=== PATIENT | male | born 1990 | race African-American/Black ===

== ENCOUNTER 2022-04-11 15:04 | Emergency (ER) | payer MEDICAID, SELFPAY ==
[2022-04-11 16:11] VITALS: BP 124/78; PULSE 94; RESP 16; TEMP 36.7; O2SAT 99; BMI 34.2
[2022-04-11 16:35] VITALS: BP 124/78; PULSE 94; RESP 16; TEMP 36.7; O2SAT 99; BMI 34.3
--- NOTE | 2022-04-11 16:59 | US_ITS ---
PROCEDURE INFORMATION: Exam: US Scrotum and US Duplex Artery and Vein, Scrotum, Complete Exam date and time: 04/11/2022 5:12 PM Age: 31 years old Clinical indication: Scrotum pain; Additional info: Pain/swelling x 1 week TECHNIQUE: Imaging protocol: Real-time ultrasound of the scrotum. Real-time duplex ultrasound scan of the arterial and venous flow of the scrotum with B-mode, color Doppler flow and spectral waveform analysis. Complete exam. Duplex images required to evaluate vascular conditions. COMPARISON: No relevant prior studies available. FINDINGS: Right testicle: Right testicle measures 2.2 x 4.0 x 2.6 cm. Calcifications noted within the right testicle. Left testicle: Left testicle measures 2.1 x 3.3 x 2.4 cm. Loculated fluid collection noted superior to the left testicle. 2.3 x 2.0 x 1.5 cm heterogeneous mass noted superior to the left testicle. Epididymides: There is enlargement of the right epididymis with increased vascularity consistent with epididymitis. This may be related to the epididymis, however a neoplasm cannot be excluded. Short-term follow-up is recommended. Scrotum: Small left hydrocele. Other findings: Blood flow is demonstrated to both testicles. No evidence of testicular torsion. IMPRESSION: 1. No evidence of testicular torsion. 2. There is enlargement of the right epididymis with increased vascularity consistent with epididymitis. 3. Loculated fluid collection noted superior to the left testicle. 4. 2.3 x 2.0 x 1.5 cm heterogeneous mass noted superior to the left testicle. This may be related to the epididymis, however a neoplasm cannot be excluded. Short-term follow-up is recommended. 5. Small left hydrocele.
--- NOTE | 2022-04-11 17:30 | HMH.EDUTC ---
[facility] Disposition Clinical Impression: Epididymitis Disposition: Home, Self-Care Condition on Discharge: Good Instructions: Epididymitis, DI for Epididymitis Additional Instructions: Take medication as prescribed Make sure to take medication as prescribed Follow up with your Family Doctor in 2 weeks for repeat exam and further evaluation to make sure infection is clearing and make sure you do not have a mass Scrotal elevation may help Prescriptions: Ibuprofen [Ibuprofen 800mg Tablet] 800 mg PO Q8HP PRN #20 tab PRN Reason: Moderate Pain Transmission Status: Received by [id number] levoFLOXacin [Levaquin 500mg tab] 500 mg PO DAILY 10 Days #10 tab Transmission Status: Received by [id number] Referrals: Provider,Referral, MD [Primary Care Provider] - As needed Time of Disposition: 18:02 Medical Decision Making - Fermin Inquiry Pt receiving controlled substance: No Fermin was queried for this patient: No Vital Signs: 04/11/22 16:11 04/11/22 16:35 04/11/22 17:53 Temperature 98.1 F 98.1 F 98.1 F Temperature Source Oral Oral Pulse Rate 94 H Pulse Rate [Right Radial] 94 H 94 H Respiratory Rate 16 16 16 Blood Pressure 124/78 Blood Pressure [Right Arm] 124/78 124/78 Blood Pressure Mean [Right Arm] 93 93 Blood Pressure Source [Right Arm] Automatic Cuff Automatic Cuff Blood Pressure Position [Right Arm] Sitting Sitting 02 Sat by Pulse Oximetry 99 99 Oxygen Delivery Method Room Air Room Air Orders (Tests/Meds): ED MEDICATIONS Discontinued Medications Generic Name Dose Route Start Last Admin Trade Name Freq PRN Reason Stop Dose Admin Ceftriaxone Sodium 500 mg 04/11/22 17:40 04/11/22 17:50 Ceftriaxone 500mg Vial IM 04/11/22 17:41 500 mg ONCE ONE Administration Lidocaine HCl 0 ml 04/11/22 17:40 04/11/22 17:50 Lidocaine 1% 5ml Pf Vial IM 04/11/22 17:41 1 ml ONCE ONE Administration - US Data US Images: Other (testicular) ED US Reviewed: Yes: I discussed the US results w/the radiologist Findings Narrative: IMPRESSION: 1. No evidence of testicular torsion. 2. There is enlargement of the right epididymis with increased vascularity consistent with epididymitis. 3. Loculated fluid collection noted superior to the left testicle. 4. 2.3 x 2.0 x 1.5 cm heterogeneous mass noted superior to the left testicle. This may be related to the epididymis, however a neoplasm cannot be excluded. Short-term follow-up is recommended. 5. Small left hydrocele. [facility] HPI - General Stated complaint: Testicals are swollen Time Seen by Provider: 04/11/22 16:45 Mode of Arrival: Ambulatory Source of Information: Patient Limitations: No Limitations Description of Symptoms (Recalled from Triage Doc. by RN): PATIENT C/O SWELLING TO BILATERAL TESTICLES AND LOWER ABDOMINAL PAIN X 1 WEEK. HE STATES SWELLING IS WORSE TODAY. HE REPORTS PAIN 5/10 WHEN SITTING AND 10/10 WHEN STANDING AND WALKING HEENT Symptoms (Recalled from RN notes): No Resp Symptoms (Recalled from RN notes): No Skin Symptoms (Recalled from RN notes): No MS Symptoms (Recalled from RN notes): No Functional Status (Recalled from RN notes): WNL - History of Present Illness Provider Complaint: Patient states that he started having pain and swelling in his left testicle about a week ago and now having pain in his right with swelling States that they are tender to the touch and feels like they are pushing up into his groin area at times and has tenderness and pain there also - Related Data Previous Rx's Medication Instructions Recorded Ibuprofen [Ibuprofen 800mg 800 mg PO Q8HP PRN #20 tab 04/11/22 Tablet] levoFLOXacin [Levaquin 500mg 500 mg PO DAILY 10 Days #10 tab 04/11/22 tab] Allergies Allergy/AdvReac Type Severity Reaction Status Date / Time No Known Allergies Allergy Verified 04/11/22 16:46 - Worker's Comp Is this a Worker's Comp case?: No [facility] History
[2022-04-11 17:53] VITALS: BP 124/78; PULSE 94; RESP 16; TEMP 36.7; O2SAT 99
== END 2022-04-11 18:03 | disposition home or self-care (01) ==
LOC: ER 16:10 → UTC 16:12
PROVIDERS: Emergency Provider Nurse Practitioner
DX: N45.1 Epididymitis (principal); R10.9 Unspecified abdominal pain; Z79.1 Long term (current) use of non-steroidal anti-inflammatories (NSAID); Z79.899 Other long term (current) drug therapy
CPT/HCPCS: 76870; 96372; 99213; G0463; J0696